=== PATIENT | female | born 1990 | race Caucasian/White ===

== ENCOUNTER 2019-07-26 15:32 | Observation (INO) ==
[2019-07-26] MEDS ORDERED: Ipratropium/Albuterol Neb 3 ML IH ONE ×2 (15:55→17:14)
[2019-07-26] MEDS ORDERED: methylPREDNISolone 125 MG/2 ML VIAL IM STA (17:14)
[2019-07-26] MEDS ORDERED: Naloxone 0.4 MG/ML INJ IVP PRN ×2 (19:23→20:24)
[2019-07-26] MEDS ORDERED: MethylPREDNISolone 40 MG/ML VIAL IVP SCH (19:30)
[2019-07-26] MEDS ORDERED: Ipratropium/Albuterol Neb 3 ML IH SCH (20:00)
[2019-07-26] MEDS ORDERED: Azithromycin 500 MG in 0.9 % Sodium Chloride 250 ML IVPB SCH (20:00)
[2019-07-26] MEDS ORDERED: Ipratropium/Albuterol Neb 3 ML ONE (20:59)
[2019-07-26] MEDS: Budesonide/Formoterol 160/4.5 1 PUFF INH IH SCH (21:05)
[2019-07-26] MEDS: Nicotine 14 MG PATCH.TD24 TD SCH (21:32)
[2019-07-26] MEDS: Doxycycline 100 MG CAPSULE PO SCH (21:32)
[2019-07-26] MEDS: Azithromycin 500 MG in 0.9 % Sodium Chloride 250 ML IVPB SCH (21:32)
[2019-07-26] MEDS ORDERED: Ondansetron ODT 4 MG TAB.RAPDIS SL ONE (22:11)
[2019-07-27] MEDS ORDERED: Melatonin 3 MG TABLET PO ONE (00:21)
[2019-07-27] MEDS: MethylPREDNISolone 40 MG/ML VIAL IVP SCH ×4 (00:31→19:55)
[2019-07-27] MEDS: Ipratropium/Albuterol Neb 3 ML IH SCH ×6 (01:16→20:33)
[2019-07-27] MEDS: Budesonide/Formoterol 160/4.5 1 PUFF INH IH SCH ×2 (07:37→20:33)
[2019-07-27] MEDS: Tiotropium 18 MCG inhalation IH SCH (07:38)
[2019-07-27] MEDS: Nicotine 14 MG PATCH.TD24 TD SCH (08:25)
[2019-07-27] MEDS: Doxycycline 100 MG CAPSULE PO SCH ×2 (08:25→19:55)
[2019-07-27 08:44] LABS: Hematocrit 45.3 % (35.3-44.9); Hemoglobin 15.9 g/dL (11.5-15.4); Mean Corpuscular HGB Conc 35.1 g/dL (31.6-35.5); Mean Corpuscular Hemoglobin 33.2 pg (28.0-33.3); Mean Corpuscular Volume 94.6 fL (83.0-100.0); Mean Platelet Volume 9.9 fL (9.4-12.4); Platelet Count 316 K/mcL (140-400); Red Blood Count 4.79 M/mcL (3.82-4.97); Red Cell Distribution Width 12.8 % (11.5-14.5); White Blood Count 12.7 K/mcL (4.3-11.1)
[2019-07-27 09:00] LABS: Alanine Aminotransferase 23 Units/L (7-52); Albumin 4.7 g/dL (3.5-5.7); Albumin/Globulin Ratio 1.4 (1.1-2.2); Alkaline Phosphatase 50 Units/L (34-104); Aspartate Amino Transferase 15 Units/L (13-39); BUN/Creatinine Ratio 24 (6-26); Bilirubin,Total 0.7 mg/dL (0.3-1.0); Blood Urea Nitrogen 14 mg/dL (6-20); Calcium 10.3 mg/dL (8.6-10.3); Carbon Dioxide 25 mEq/L (23-29); Chloride 103 mEq/L (98-107); Globulin 3.3 g/dL (2.4-3.5); Glucose 154 mg/dL (70-105); Osmolality,Calculated 286 (280-300); Potassium 4.3 mEq/L (3.5-5.1); Sodium 136 mEq/L (136-145); eGFR For African Americans > 60 (> 60); eGFR For Non-African Americans > 60 (> 60)
[2019-07-27] MEDS ORDERED: Acetaminophen 325 MG TABLET PO ONE (11:51)
[2019-07-27] MEDS ORDERED: Ketorolac 30 MG/ML VIAL IVP ONE (14:26)
[2019-07-27] MEDS ORDERED: Ipratropium/Albuterol Neb 3 ML IH SCH (20:30)
[2019-07-27] MEDS ORDERED: Benzonatate 100 MG CAPSULE PO PRN (21:38)
[2019-07-27] MEDS: Azithromycin 500 MG in 0.9 % Sodium Chloride 250 ML IVPB SCH (22:32)
[2019-07-28] MEDS: Ipratropium/Albuterol Neb 3 ML IH SCH ×4 (00:24→12:33)
[2019-07-28] MEDS: MethylPREDNISolone 40 MG/ML VIAL IVP SCH ×3 (00:46→13:12)
[2019-07-28 01:27] LABS: Bilirubin,Urine Negative (Negative); Blood,Urine Negative (Negative); Clarity,Urine Clear (Clear); Color,Urine Dark Yellow (Yellow); Glucose,Urine (UA) Normal (Normal); Ketones,Urine Negative (Negative); Leukocyte Esterase,Urine Moderate (Negative); Nitrite,Urine Negative (Negative); Protein,Urine Negative (Neg-Trace); Specific Gravity,Urine 1.025 (1.010-1.025); Urobilinogen,Urine Normal (Normal)
[2019-07-28 01:32] LABS: Squamous Epithelial Cell,Urine Many per lpf (None-Few); WBC,Urine 15-30 per hpf (0-3)
[2019-07-28 01:33] LABS: Bacteria,Urine Few per hpf (None-Few); Mucus,Urine Few per lpf (Few)
[2019-07-28 01:40] LABS: Amphetamine Screen,Urine Negative ng/mL (Cutoff=1000); Barbiturate Screen,Urine Negative ng/mL (Cutoff=200); Benzodiazepines Screen,Urine Negative ng/mL (Cutoff=200); Cannabinoid Screen,Urine Positive ng/mL (Cutoff = 50); Cocaine Screen,Urine Negative ng/mL (Cutoff= 300); Opiate Screen,Urine Negative ng/mL (Cutoff=300); Phencyclidine Screen,Urine Negative ng/mL (Cutoff=25)
[2019-07-28 06:46] LABS: Hematocrit 39.8 % (35.3-44.9); Hemoglobin 13.7 g/dL (11.5-15.4); Mean Corpuscular HGB Conc 34.4 g/dL (31.6-35.5); Mean Corpuscular Volume 95.9 fL (83.0-100.0); Mean Platelet Volume 10.7 fL (9.4-12.4); Platelet Count 280 K/mcL (140-400); Red Blood Count 4.15 M/mcL (3.82-4.97); Red Cell Distribution Width 13.2 % (11.5-14.5); White Blood Count 18.8 K/mcL (4.3-11.1)
[2019-07-28 07:08] LABS: BUN/Creatinine Ratio 33 (6-26); Blood Urea Nitrogen 22 mg/dL (6-20); Calcium 9.5 mg/dL (8.6-10.3); Carbon Dioxide 26 mEq/L (23-29); Chloride 105 mEq/L (98-107); Glucose 147 mg/dL (70-105); Osmolality,Calculated 294 (280-300); Potassium 3.9 mEq/L (3.5-5.1); Sodium 139 mEq/L (136-145); eGFR For African Americans > 60 (> 60); eGFR For Non-African Americans > 60 (> 60)
[2019-07-28] MEDS: Tiotropium 18 MCG inhalation IH SCH (07:53)
[2019-07-28] MEDS: Budesonide/Formoterol 160/4.5 1 PUFF INH IH SCH (07:54)
[2019-07-28] MEDS: Nicotine 14 MG PATCH.TD24 TD SCH (08:06)
[2019-07-28] MEDS: Doxycycline 100 MG CAPSULE PO SCH (08:06)
[2019-07-28 10:15] LABS: Adenovirus Not Detected (Not Detect); Coronavirus 229E Not Detected (Not Detect); Coronavirus HKU1 Not Detected (Not Detect); Coronavirus NL63 Not Detected (Not Detect); Coronavirus OC43 Not Detected (Not Detect)
[2019-07-28 10:16] LABS: Bordetella Pertussis Not Detected (Not Detect); Chlamydophila pneumoniae Not Detected (Not Detect); Human Metapneumovirus Not Detected (Not Detect); Human Rhinovirus/Enterovirus DETECTED (Not Detect); Influenza A Subtype 2009 H1 Not Detected (Not Detect); Influenza B Not Detected (Not Detect); Mycoplasma pneumoniae Not Detected (Not Detect); Parainfluenza Virus 1 Not Detected (Not Detect); Parainfluenza Virus 2 Not Detected (Not Detect); Parainfluenza Virus 3 Not Detected (Not Detect); Parainfluenza Virus 4 Not Detected (Not Detect); Respiratory Syncytial Virus Not Detected (Not Detect)
[2019-07-28 11:51] VITALS: BP 95/62
[2019-07-28] MEDS ORDERED: FLU Vac QV 19-20 (6Month+)/PF 0.5 ML SYRINGE IM ONE (13:14)
== END 2019-07-28 14:38 | disposition home or self-care (01) ==
LOC: EMEROOPIK 15:32 → INPPIK 15:32
PROVIDERS: ADMIT Family Medicine; ATTEND Family Medicine